=== PATIENT | female | born 1990 | race Caucasian/White ===

== ENCOUNTER 2016-10-23 11:23 | Emergency (ER) | payer OTHER ==
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
[~2016-10-23 11:23] MED LIST: BACTRIM DS TABL1 TA2 PO; BIRTH CONTROL PILL; CIPRO PO; CLEOCIN HCL300 M1 PO; FERROUS SULFATE PO; FLAGYL PO; HYDROCODONE; IMODIUM2 MG PO; IRON1 TA1; IRON18 MG; KEFLEX500 M1 PO; LOMOTIL TABLET1 TAB PO; MOTRIN20 MG/ML; MOTRIN600 MG PO; NAPROXEN PO; NO MEDICATIONS; PEN-VEE K PO; SLEEPING PILL; TRAMADOL HCL50 M1 PO; VICODIN 5/500 T1 TAB PO; VICODIN PO; VOLTAREN75 MG PO
== END 2016-10-23 11:59 | disposition home or self-care (01) ==
LOC: SED 11:23
DX: S96.911A Strain of unspecified muscle and tendon at ankle and foot level, right foot, initial encounter (principal); F17.210 Nicotine dependence, cigarettes, uncomplicated; Z88.8 Allergy status to other drugs, medicaments and biological substances; X50.1XXA Overexertion from prolonged static or awkward postures, initial encounter; Y92.89 Other specified places as the place of occurrence of the external cause
CPT/HCPCS: 29540; 73610; 73630; 99283